=== PATIENT | male | born 1960 | race Caucasian/White ===

== ENCOUNTER 2019-06-28 01:32 | Emergency (ER) | payer BC, OTHER ==
[~2019-06-28] VITALS: Ht 190.5 cm; Wt 165.6 kg
[2019-06-28] MEDS ORDERED: ALBUTEROL/IPRATROPIUM 3 ML NEB NEB ONE (01:45)
--- NOTE | 2019-06-28 01:55 | NUR ---
RT AT PTS BEDSIDE TO ADMINISTER HHN TX AT THIS TIME
--- NOTE | 2019-06-28 02:33 | Diagnostic Imaging Report ---
EXAMINATION: PA and lateral views of the chest. COMPARISON: None CLINICAL HISTORY: Cough, high blood pressure for DISCUSSION: Lines/tubes: None. Lungs: The lungs are well inflated and clear. There is no evidence of pneumonia or pulmonary edema. Pleura: There is no pleural effusion or pneumothorax. Heart and mediastinum: Cardiomediastinal silhouette is unremarkable. Pulmonary vasculature is normal. Bones and soft tissues: No acute bony abnormalities. Degenerative changes in the thoracic spine IMPRESSION: No acute cardiopulmonary abnormalities. Signed by: Dr. Kody Ogden M.D. on 06/28/2019 2:29 AM
[2019-06-28 02:43] VITALS: BP 148/76
== END 2019-06-28 02:51 | disposition home or self-care (01) ==
LOC: ER 01:32
DX: R05 Cough (principal); J20.9 Acute bronchitis, unspecified; I10 Essential (primary) hypertension; E11.9 Type 2 diabetes mellitus without complications; E78.5 Hyperlipidemia, unspecified
CPT/HCPCS: 71046; 93005; 94640; 99283

== ENCOUNTER 2022-05-20 05:33 | Emergency (ER) | payer BC, OTHER ==
[2022-05-20] MEDS ORDERED: HYDROCODONE/APAP 7.5MG-325MG 1 EA TAB PO ONE (06:00)
[2022-05-20] MEDS ORDERED: KETOROLAC TROMETHAMINE 60 MG/2 ML VIAL IM ONE (06:00)
[2022-05-20] MEDS ORDERED: KETOROLAC TROMETHAMINE 30 MG/ML VIAL IM ONE (06:15)
[2022-05-20] MEDS: TETANUS/DIPHTHERIA TOX ADULT 0.5 ML SYR IM ONE (06:45)
== END 2022-05-20 08:10 | disposition home or self-care (01) ==
LOC: ER 05:33
DX: S39.012A Strain of muscle, fascia and tendon of lower back, initial encounter (principal); W01.0XXA Fall on same level from slipping, tripping and stumbling without subsequent striking against object, initial encounter; Y93.01 Activity, walking, marching and hiking; Y92.89 Other specified places as the place of occurrence of the external cause; I10 Essential (primary) hypertension; M54.9 Dorsalgia, unspecified; G89.29 Other chronic pain; Z98.84 Bariatric surgery status
CPT/HCPCS: 72110; 90471; 90714; 99283; J1885